=== PATIENT | female | born 1960 | race Caucasian/White ===

== ENCOUNTER 2016-05-24 09:32 | Emergency (ER) | payer OTHER ==
[~2016-05-24] VITALS: Ht 162.6 cm; Wt 88.0 kg
[~2016-05-24 09:32] MED LIST: BLOOKIT5; ESTRTAB12 PO; GLUC1CAP14 PO; HYDR12.56 PO; PARO10TA PO; TAB-TAB PO; VITA100017 PO
[2016-05-24 09:38] VITALS: BP 134/91; PULSE 91; RESP 17; TEMP 99.6; O2SAT 91
[2016-05-24] MEDS ORDERED: RESP: ALBUTEROL 2.5 MG/IPRATROPIUM 0.5 MG NEB (SCH) NEB ONE (10:00)
[2016-05-24] MEDS ORDERED: RESP: LIDOCAINE HCL 4% PF 5 ML NEB NEB ONE (10:00)
[2016-05-24] MEDS ORDERED: predniSONE 20 MG TAB PO ONE (10:00)
[2016-05-24] MEDS ORDERED: HYDR12.57 PO (10:04)
[2016-05-24] MEDS ORDERED: PAXI10TA2 PO (10:04)
[2016-05-24] MEDS ORDERED: PRED-503 PO (10:06)
[2016-05-24] MEDS ORDERED: ZITHTAB PO (10:06)
[2016-05-24] MEDS ORDERED: VENTAER INH (10:07)
--- NOTE | 2016-05-24 10:07 | PD ---
HPI Chief Complaint: Cold / Flu Symptoms Time Seen by Provider: 09:54 Travel History International Travel<30 days: No Contact w/Intl Traveler<30days: No Traveled to known affect area: No History of Present Illness HPI The patient is a 56-year-old female who presents emergency department for cough and cold symptoms. The patient notes a 4 day history of a cough, now producing green sputum, with anterior chest wall pain secondary to coughing. The patient also complains of subjective fevers with chills at home. The patient does have a history of bronchitis and pneumonia, denies any history of tobacco use. The patient denies any associated nausea, vomiting, diarrhea, abdominal pain, or myalgias/arthralgias. She does state she had diarrhea 1 last week which is currently resolved. The patient denies any family members are sick contacts at home with influenza. Symptoms are moderate, there are no current alleviating or exacerbating factors. PFSH Past Medical History Narrative Medical High blood pressure, hot flashes Hx Anticoagulant Therapy: Yes (ASPIRIN 81 MG DAILY) Menopausal: Yes Past Surgical History Abdominal Surgery: Yes Tonsillectomy: Yes (AGE 3) Social History Alcohol Use: Yes (RARELY) Tobacco Use: No Substance Use: No Allergies-Medications (Allergen,Severity, Reaction): Coded Allergies: No Known Allergies (Verified , 05/24/16) Reported Meds & Prescriptions Reported Meds & Active Scripts Active Ventolin Hfa 18 GM Inh (Albuterol Sulfate) 90 Mcg/Act Aer 2 Puff INH Q4H PRN Zithromax Z-Milton (Azithromycin) 250 Mg Dspk 250 Mg PO DIRECTED 500 MG (2 tabs) day 1, then 1 tab days 2-5. Deltasone (Prednisone) 20 Mg Tab 40 Mg PO DAILY 4 Days Reported Hydrochlorothiazide 12.5 Mg Cap 12.5 Mg PO DAILY Paxil (Paroxetine HCl) 10 Mg Tab 10 Mg PO DAILY Review of Systems Except as stated in HPI: all other systems reviewed are Neg General / Constitutional: Positive: Chills HENT: Positive: Congestion Cardiovascular: Positive: Chest Pain or Discomfort (anterior chest wall pain with coughing) Respiratory: Positive: Cough Gastrointestinal: Positive: Diarrhea (times one last week, currently resolved) , No: Nausea, Vomiting, Abdominal Pain Musculoskeletal: No: Myalgias, Arthralgias Physical Exam Narrative GENERAL: Awake, alert, nontoxic-appearing 56 year-old female who appears her stated age and is in no acute respiratory distress. SKIN: Warm and dry. HEAD: Atraumatic. Normocephalic. EYES: No injection or drainage. ENT: No nasal bleeding or discharge. Mucous membranes pink and moist. NECK: Trachea midline. No JVD. CARDIOVASCULAR: Regular rate and rhythm. No murmur appreciated. RESPIRATORY: No accessory muscle use. Clear to auscultation. Breath sounds equal bilaterally. MUSCULOSKELETAL: No obvious deformities. No clubbing. No cyanosis. No edema. NEUROLOGICAL: Awake and alert. No obvious cranial nerve deficits. Motor grossly within normal limits. Normal speech. PSYCHIATRIC: Appropriate mood and affect; insight and judgment normal. Data Data Last Documented VS Vital Signs Date Time Temp Pulse Resp B/P Pulse Ox O2 Delivery O2 Flow Rate FiO2 05/24/16 09:56 16 94 Room Air 05/24/16 09:38 99.6 91 134/91 Orders Prednisone (Deltasone) (05/24/16 10:00) Albuterol-Ipratropium Neb (Duoneb Neb) (05/24/16 10:00) Lidocaine Pf 4% Neb (Lidocaine Pf 4% Neb (05/24/16 10:00) MDM Medical Decision Making Medical Screen Exam Complete: Yes Emergency Medical Condition: Yes Medical Record Reviewed: Yes Differential Diagnosis Differential diagnosis includes bronchitis, pneumonia, URI, influenza, viral syndrome, congestive heart failure, pleural effusion. Narrative Course The patient was administered prednisone 60 mg orally and DuoNeb 1 with respiratory lidocaine. The patient's history and physical are consistent with most likely bronchitis versus early pneumonia. Therefore, patient will be discharged home on prednisone, albuterol inhaler, and Zithromax. She is advised to use [id number] Tylenol and/or Motrin as needed for pain and fever, return if symptoms worsen or progress, and to follow-up with her primary physician. Diagnosis Primary Impression: Bronchitis Patient Instructions: General Instructions Additional Instructions: Medications as directed. Follow-up with your primary physician. Return if symptoms worsen or progress. Med/Other Pt SpecificInfo: Prescription(s) given Scripts Albuterol 18 GM Inh (Ventolin Hfa 18 GM Inh)90 Mcg/Act Aer2 Puff INH Q4H PRN ( SHORTNESS OF BREATH) #1 INHALER Ref 0 Prov:Ronald Reina MD 05/24/16 Azithromycin (Zithromax Z-Milton)250 Mg [id number] Mg PO DIRECTED #1 DSPK Ref 0 500 MG (2 tabs) day 1, then 1 tab days 2-5. Prov:Ronald Reina MD 05/24/16 Prednisone (Deltasone)20 Mg Tab40 Mg PO DAILY 4 Days Ref 0 Prov:Ronald Reina MD 05/24/16 Disposition: 01 DISCHARGE HOME Condition: Stable Ronald Reina MD May 24, 2016 10:07 Ronald Reina MD May 24, 2016 10:07
[2016-06-21] MEDS ORDERED: HYDR12.57 PO (22:36)
[2016-08-23] MEDS ORDERED: LISI-519 PO (08:54)
== END 2016-05-24 10:52 | disposition home or self-care (01) ==
LOC: PHED 09:32
DX: J40 Bronchitis, not specified as acute or chronic (principal); I10 Essential (primary) hypertension
CPT/HCPCS: 94664; 99283; J7512

== ENCOUNTER → 2016-10-18 | Outpatient (CLI) | payer OTHER ==
[~2016-10-18] MED LIST changes: -BLOOKIT5; -ESTRTAB12 PO; -GLUC1CAP14 PO; -HYDR12.56 PO; +HYDR12.57 PO; +LISI-519 PO; -PARO10TA PO; +PAXI10TA2 PO; -TAB-TAB PO; -VITA100017 PO
[2016-10-18 11:00] LABS: AUTOMATED NEUTROPHIL # 4.2 TH/MM3 (1.8-7.7); BASOPHIL # 0.1 TH/MM3 (0-0.2); BASOPHIL % 0.9 % (0.0-2.0); EOSINOPHIL # 0.2 TH/MM3 (0-0.4); EOSINOPHIL % 3.3 % (0.0-4.0); HEMATOCRIT 37.4 % (35.0-46.0); HEMO FLAGS DIFF FINAL; LYMPH % 28.7 % (9.0-44.0); LYMPHOCYTE # 2.1 TH/MM3 (1.0-4.8); MEAN CELL VOLUME 81.4 FL (80.0-100.0); MEAN CORPUSCULAR HEMOGLOBIN 27.2 PG (27.0-34.0); MEAN CORPUSCULAR HGB CONC 33.4 % (32.0-36.0); MONO % 10.7 % (0.0-8.0); NEUT % 56.4 % (16.0-70.0); PLATELET COUNT 317 TH/MM3 (150-450); RED CELL DISTRIBUTION WIDTH 14.1 % (11.6-17.2); WHITE BLOOD COUNT 7.4 TH/MM3 (4.0-11.0)
[2016-10-18 11:24] LABS: ANION GAP 7 MEQ/L (5-15); AST (GOT) 15 U/L (15-37); BICARBONATE 29.3 MEQ/L (21.0-32.0); BLOOD UREA NITROGEN 13 MG/DL (7-18); CHLORIDE 105 MEQ/L (98-107); GLOMERULAR FILTRATION RATE 107 ML/MIN (>89); GLUCOSE,FASTING 92 MG/DL (74-99); POTASSIUM 3.6 MEQ/L (3.5-5.1); SODIUM (NA) 141 MEQ/L (136-145)
[2016-10-18 11:28] LABS: ALKALINE PHOSPHATASE 94 U/L (45-117); ALT (GPT) 19 U/L (10-53); TOTAL BILIRUBIN ADULT 0.6 MG/DL (0.2-1.0)
== END ==
LOC: CLAB 10:19
PROVIDERS: ATTEND Nurse Practitioner Family
DX: I10 Essential (primary) hypertension (principal)
CPT/HCPCS: 36415; 80053; 85025